=== PATIENT | male | born 1940 | race Caucasian/White ===

== ENCOUNTER → 2017-10-09 | Outpatient (CLI) | payer OTHER | END | disposition home or self-care (01) | LOC: RAH 14:08 | PROVIDERS: ATTEND Family Medicine | DX: M79.605 Pain in left leg (principal); I10 Essential (primary) hypertension | CPT/HCPCS: 73590 ==

== ENCOUNTER 2018-07-05 00:13 | Observation (INO) | payer OTHER ==
[~2018-07-05] VITALS: Ht 167.6 cm; Wt 62.9 kg
[2018-07-05 00:45] LABS: BASOPHILS % (AUTO) 0.8 % (0.0-5.0); EOSINOPHILS % (AUTO) 2.3 % (0.0-8.0); LYMPHOCYTES % (AUTO) 29.7 % (21.0-51.0); MEAN CORPUSCULAR HEMOGLOBIN 32.6 pg (27.0-33.0); MEAN CORPUSCULAR HGB CONC 33.9 g/dL (32.0-36.0); MEAN CORPUSCULAR VOLUME 96.2 fL (79-99); MONOCYTES % (AUTO) 8.6 % (3.0-13.0); NEUTROPHILS % (AUTO) 58.6 % (40.0-77.0); NUCLEATED RED BLOOD CELLS 0.1 % (0.0-0.19); RED BLOOD CELL COUNT(AUTO) 4.05 MIL/uL (4.50-6.20); RED CELL DISTRIBUTION WIDTH 12.6 % (11.0-15.5); WHITE BLOOD COUNT (AUTO) 4.3 K/uL (4.8-10.8)
[2018-07-05 00:49] LABS: CREATININE 0.7 mg/dL (0.5-1.5)
[2018-07-05 00:53] LABS: INR 0.99 (0.85-1.15); PARTIAL THROMBOPLASTIN TIME 29.6 SEC (26.3-35.5); PROTHROMBIN TIME 10.4 SEC (9.6-11.6)
[2018-07-05 01:00] LABS: ALBUMIN 3.9 g/dL (3.5-5.0); BILIRUBIN,TOTAL 0.3 mg/dL (0.2-1.0)
[2018-07-05 01:01] LABS: PLATELET COUNT (AUTO) 105 K/uL (130-400)
[2018-07-05 01:42] LABS: AMPHET/METH SCREEN,URINE NEGATIVE (NEGATIVE); BARBITURATE SCREEN, URINE NEGATIVE (NEGATIVE); BENZODIAZEPINES SCREEN,URINE NEGATIVE (NEGATIVE); CANNABINOID SCREEN,URINE POSITIVE (NEGATIVE); COCAINE SCREEN,URINE NEGATIVE (NEGATIVE); OPIATE SCREEN,URINE NEGATIVE (NEGATIVE); PHENCYCLIDINE SCREEN,URINE NEGATIVE (NEGATIVE)
[2018-07-05 02:45] VITALS: BP 152/79
[2018-07-05 04:00] VITALS: BP 134/74
[2018-07-05] MEDS ORDERED: PRAV20TA4 PO (04:02)
[2018-07-05] MEDS ORDERED: ENAL20TA PO (04:02)
[2018-07-05] MEDS ORDERED: ENAL10TA PO (04:02)
[2018-07-05] MEDS ORDERED: ISOS20TA7 PO (04:02)
[2018-07-05] MEDS ORDERED: IPRA21SP NS (04:02)
[2018-07-05] MEDS ORDERED: TRAZ300T2 PO (04:02)
[2018-07-05] MEDS ORDERED: RANI150C4 PO (04:02)
[2018-07-05] MEDS ORDERED: GABA-531 PO (04:02)
[2018-07-05] MEDS ORDERED: AMIT10TA6 PO (04:02)
[2018-07-05] MEDS ORDERED: VENL100T4 PO (04:02)
[2018-07-05] MEDS ORDERED: BUSP10TA3 PO (04:02)
[2018-07-05] MEDS ORDERED: METO25TA6 PO (04:02)
[2018-07-05] MEDS ORDERED: CYCL5.5D3 OP (04:02)
[2018-07-05 05:46] LABS: BASOPHILS % (AUTO) 0.9 % (0.0-5.0); EOSINOPHILS % (AUTO) 3.6 % (0.0-8.0); HEMATOCRIT 36.3 % (42-54); LYMPHOCYTES % (AUTO) 32.7 % (21.0-51.0); MEAN CORPUSCULAR HEMOGLOBIN 33.6 pg (27.0-33.0); MEAN CORPUSCULAR HGB CONC 34.7 g/dL (32.0-36.0); MEAN CORPUSCULAR VOLUME 96.8 fL (79-99); MONOCYTES % (AUTO) 11.1 % (3.0-13.0); NEUTROPHILS % (AUTO) 51.7 % (40.0-77.0); NUCLEATED RED BLOOD CELLS 0.1 % (0.0-0.19); PLATELET COUNT (AUTO) 115 K/uL (130-400); RED BLOOD CELL COUNT(AUTO) 3.75 MIL/uL (4.50-6.20); RED CELL DISTRIBUTION WIDTH 12.9 % (11.0-15.5); WHITE BLOOD COUNT (AUTO) 3.6 K/uL (4.8-10.8)
[2018-07-05 06:07] LABS: HEMOGLOBIN A1C 4.8 % (4.0-6.0)
[2018-07-05 06:11] LABS: ALBUMIN 3.6 g/dL (3.5-5.0); BILIRUBIN,TOTAL 0.3 mg/dL (0.2-1.0); CREATININE 0.6 mg/dL (0.5-1.5); POTASSIUM 3.9 mmol/L (3.5-5.1); TOTAL PROTEIN, SERUM 6.6 g/dL (6.0-8.3)
[2018-07-05] MEDS ORDERED: COMPOUND IV REFRIGERATED 1 EACH IVSOLN MISC PRN (07:00)
[2018-07-05 07:49] VITALS: BP 149/70
[2018-07-05] MEDS ORDERED: THIAMINE HCL 100 MG/ML 2ML VIAL IVP SCH (09:00)
[2018-07-05] MEDS ORDERED: FOLIC ACID 5 MG/ML 10 ML VIAL IV SCH (09:00)
[2018-07-05] MEDS ORDERED: IOHEXOL 350 MG/ML 100ML INFUS..BTL IV ONE (09:05)
[2018-07-05 11:40] VITALS: BP 150/68
[2018-07-05] MEDS ORDERED: TRAZODONE HCL 100 MG TABLET PO PRN (14:00)
[2018-07-05] MEDS ORDERED: IPRATROPIUM BROMIDE NASAL PRN (14:23)
[2018-07-05] MEDS ORDERED: BUSPIRONE HCL 5 MG TABLET PO ONE (14:32)
[2018-07-05] MEDS: GABAPENTIN 300 MG CAPSULE PO SCH ×2 (14:41→19:56)
[2018-07-05 15:53] VITALS: BP 140/71
[2018-07-05] MEDS ORDERED: DOCUSATE SODIUM 100 MG CAP PO SCH (16:15)
[2018-07-05] MEDS ORDERED: ARTIFICAL TEARS SOL 15 ML OU PRN (16:15)
[2018-07-05] MEDS: BUSPIRONE HCL 5 MG TABLET PO SCH ×2 (17:30→20:15)
[2018-07-05] MEDS ORDERED: ENOXAPARIN SODIUM 40 MG/0.4 ML SYRINGE SQ SCH (18:45)
[2018-07-05 20:12] VITALS: BP 155/81
[2018-07-05] MEDS ORDERED: ENALAPRIL MALEATE 10 MG TABLET PO SCH (21:00)
[2018-07-05] MEDS ORDERED: VENLAFAXINE HCL 75 MG TAB PO SCH (21:00)
[2018-07-05] MEDS ORDERED: METOPROLOL TARTRATE PO SCH (21:00)
[2018-07-05] MEDS ORDERED: AMITRIPTYLINE HCL 10 MG TABLET PO SCH (21:00)
[2018-07-05] MEDS ORDERED: CHONDROIT SULF A OP SCH (21:00)
[2018-07-05] MEDS ORDERED: [UNRECOGNIZED DRUG - OTHER] OP SCH (21:00)
[2018-07-05] MEDS ORDERED: ATORVASTATIN CALCIUM 10 MG TABLET PO SCH (21:00)
[2018-07-05] MEDS ORDERED: CYCLOSPORINE OP SCH (21:00)
[2018-07-05] MEDS ORDERED: DIAZEPAM 5 MG TABLET PO PRN (21:00)
[2018-07-05] MEDS ORDERED: RANITIDINE HCL 15 MG/1 ML PO SCH (21:00)
[2018-07-05] MEDS ORDERED: METOPROLOL TARTRATE 25 MG TAB PO SCH (21:00)
[2018-07-06 00:20] VITALS: BP 157/88
[2018-07-06 04:16] VITALS: BP 153/72
[2018-07-06 07:30] VITALS: BP 151/72
[2018-07-06] MEDS ORDERED: ISOSORBIDE MONO 60 MG TAB.SR PO SCH (09:00)
[2018-07-06] MEDS ORDERED: ENALAPRIL MALEATE 10 MG TABLET PO SCH (09:00)
[2018-07-06] MEDS ORDERED: FLUTICASONE PROPIONATE 50MCG/SPRAY 16 GM BOTTLE EN SCH (09:00)
[2018-07-06] MEDS ORDERED: VENLAFAXINE HCL 225 MG PO SCH (09:00)
== END 2018-07-06 10:29 | disposition left against medical advice (07) ==
LOC: EDH 00:13 → EDHIP 01:45 → INTOOBSV 01:45 → 4BH 02:26
PROVIDERS: ADMIT Hospitalist; ATTEND Hospitalist
DX: M21.331 Wrist drop, right wrist (principal); R53.1 Weakness; I10 Essential (primary) hypertension; I25.10 Atherosclerotic heart disease of native coronary artery without angina pectoris; M51.86 Other intervertebral disc disorders, lumbar region; F41.9 Anxiety disorder, unspecified; F32.9 Major depressive disorder, single episode, unspecified; F10.10 Alcohol abuse, uncomplicated; F12.10 Cannabis abuse, uncomplicated; Z95.1 Presence of aortocoronary bypass graft; Z88.8 Allergy status to other drugs, medicaments and biological substances; Z79.01 Long term (current) use of anticoagulants; Z79.899 Other long term (current) drug therapy
CPT/HCPCS: 36415; 70450; 70496; 70498; 70551; 71045; 80053; 80061; 80305; 82270; 82550; 82948 ×5; 83036; 83874; 84484 ×2; 85025 ×2; 85610; 85730; 93005 ×2; 93306; 96374; 96375; 99285; G0378 ×33; G0480; J3411; J3490 ×3; Q9967

== ENCOUNTER 2022-09-27 15:59 | Emergency (ER) | payer OTHER ==
[~2022-09-27] VITALS: Ht 170.2 cm; Wt 49.0 kg
[~2022-09-27 15:59] MED LIST: AMIT10TA6 PO; BUSP10TA3 PO; CYCL5.5D3 OP; ENAL10TA18 PO; ENAL20TA18 PO; GABA-531 PO; IPRA21SP NS; ISOS20TA85 PO; METO25TA6 PO; PRAV20TA4 PO; RANI150C4 PO; TRAZ300T2 PO; VENL100T4 PO
[2022-09-27 16:59] LABS: BASOPHILS % (AUTO) 0.4 % (0.0-5.0); EOSINOPHILS % (AUTO) 2.8 % (0.0-8.0); HEMATOCRIT 32.3 % (42-54); MEAN CORPUSCULAR HEMOGLOBIN 31.7 pg (27.0-33.0); MEAN CORPUSCULAR HGB CONC 32.8 g/dL (32.0-36.0); MEAN CORPUSCULAR VOLUME 96.7 fL (79-99); MONOCYTES % (AUTO) 11.9 % (3.0-13.0); NEUTROPHILS % (AUTO) 71.7 % (40.0-77.0); PLATELET COUNT (AUTO) 142 K/uL (130-400); RED BLOOD CELL COUNT(AUTO) 3.34 MIL/uL (4.50-6.20); RED CELL DISTRIBUTION WIDTH 13.4 % (11.0-15.5); WHITE BLOOD COUNT (AUTO) 4.7 K/uL (4.8-10.8)
[2022-09-27 17:16] LABS: CREATININE 0.7 mg/dL (0.5-1.5); POTASSIUM 3.8 mmol/L (3.5-5.1)
[2022-09-27 17:30] LABS: ALBUMIN 3.1 g/dL (3.5-5.0); TOTAL PROTEIN, SERUM 6.6 g/dL (6.0-8.3)
[2022-09-28] MEDS ORDERED: ZOSYN 3.375GM +NS 50ML IV STA (00:46)
[2022-09-28] MEDS ORDERED: ZOSYN 3.375GM+NS 50ML 50 ML ONE (00:52)
[2022-09-28] MEDS ORDERED: CLIN-141 PO (02:27)
[2022-09-28] MEDS ORDERED: CEPH500B PO (02:27)
[2022-09-28 03:00] VITALS: BP 139/58
== END 2022-09-28 04:55 | disposition home or self-care (01) ==
LOC: EDH 15:59
DX: L00 Staphylococcal scalded skin syndrome (principal); B95.8 Unspecified staphylococcus as the cause of diseases classified elsewhere; L49.0 Exfoliation due to erythematous condition involving less than 10 percent of body surface; E78.00 Pure hypercholesterolemia, unspecified; I10 Essential (primary) hypertension; Z95.1 Presence of aortocoronary bypass graft; Z88.8 Allergy status to other drugs, medicaments and biological substances; Z79.899 Other long term (current) drug therapy
CPT/HCPCS: 99285; 93970; 71045; 84484; 80053; 85025; 36415; 93005; 96365; J2543

== ENCOUNTER 2022-12-03 08:45 | Emergency (ER) | payer OTHER ==
[~2022-12-03] VITALS: Ht 172.7 cm; Wt 63.5 kg
[~2022-12-03 08:45] MED LIST changes: +CEPH500B PO; +CLIN-141 PO; +ENAL-89 PO; -ENAL10TA18 PO
[2022-12-03 09:06] LABS: BASOPHILS % (AUTO) 0.7 % (0.0-5.0); EOSINOPHILS % (AUTO) 2.6 % (0.0-8.0); HEMATOCRIT 35.3 % (42-54); LYMPHOCYTES % (AUTO) 16.5 % (21.0-51.0); MEAN CORPUSCULAR HEMOGLOBIN 31.2 pg (27.0-33.0); MEAN CORPUSCULAR HGB CONC 32.9 g/dL (32.0-36.0); MEAN CORPUSCULAR VOLUME 94.9 fL (79-99); MONOCYTES % (AUTO) 10.8 % (3.0-13.0); NEUTROPHILS % (AUTO) 69.2 % (40.0-77.0); PLATELET COUNT (AUTO) 119 K/uL (130-400); RED BLOOD CELL COUNT(AUTO) 3.72 MIL/uL (4.50-6.20); RED CELL DISTRIBUTION WIDTH 13.1 % (11.0-15.5); WHITE BLOOD COUNT (AUTO) 4.6 K/uL (4.8-10.8)
[2022-12-03 09:17] LABS: CREATININE 0.6 mg/dL (0.5-1.5)
[2022-12-03 09:21] LABS: ALBUMIN 3.2 g/dL (3.5-5.0); TOTAL PROTEIN, SERUM 6.6 g/dL (6.0-8.3)
[2022-12-03 10:34] VITALS: BP 160/79
[2022-12-03 10:43] LABS: APPEARANCE,URINE CLEAR (CLEAR); BILIRUBIN,URINE NEGATIVE (NEGATIVE); COLOR,URINE COLORLESS (YELLOW); GLUCOSE, URINE (UA) NEGATIVE (NEGATIVE); KETONES,URINE NEGATIVE (NEGATIVE); LEUKOCYTE ESTERASE ,URINE NEGATIVE Leu/uL (NEGATIVE); MUCUS,URINE RARE LPF (None Seen); NITRATE,URINE NEGATIVE (NEGATIVE); OCCULT BLOOD,URINE NEGATIVE (NEGATIVE); PROTEIN,URINE NEGATIVE (NEGATIVE); UROBILINOGEN,URINE 0.2 mg/dL (0.2-1.0); WBC,URINE 0-1 /HPF (0-1)
[2022-12-03 10:51] LABS: AMPHET/METH SCREEN,URINE NEGATIVE (NEGATIVE); BARBITURATE SCREEN, URINE NEGATIVE (NEGATIVE); BENZODIAZEPINES SCREEN,URINE NEGATIVE (NEGATIVE); CANNABINOID SCREEN,URINE POSITIVE (NEGATIVE); COCAINE SCREEN,URINE NEGATIVE (NEGATIVE); OPIATE SCREEN,URINE NEGATIVE (NEGATIVE); PHENCYCLIDINE SCREEN,URINE NEGATIVE (NEGATIVE)
== END 2022-12-03 12:25 | disposition left against medical advice (07) ==
LOC: EDH 08:45
DX: R51.9 Headache, unspecified (principal); Z76.5 Malingerer [conscious simulation]; I10 Essential (primary) hypertension; E78.00 Pure hypercholesterolemia, unspecified; F41.9 Anxiety disorder, unspecified; Z79.899 Other long term (current) drug therapy; Z98.890 Other specified postprocedural states; Z88.8 Allergy status to other drugs, medicaments and biological substances
CPT/HCPCS: 36415; 80053; 80305; 81001; 82550; 85025